=== PATIENT | female | born 1950 | race Caucasian/White ===

== ENCOUNTER → 2016-08-06 | Outpatient (CLI) | payer OTHER, MEDICARE ==
--- NOTE | 2016-08-06 09:13 | DX ---
Lumbar Spine, Four Views 7:34 a.m. Indication: Pain. Evaluate for instability. Comparison: Lumbar spine series dated February 14, 2016. Technique: Upright AP and lateral views in the neutral, flexed, and extended positions. Findings: The upright AP view reveals limb-length discrepancy resulting in mild pelvic tilt and compe nsatory curvature of the lumbar spine. The posterior fusion construct extending from L3 to L5 is well seated with no perihilar hardware fra cture or lucency. The construct consists of dual posterior rods and bilateral pedicle screws in L3, L 4, and L5. Allograft and markers reside in the L3-L4 and L4-L5 interbody spaces. The allograft appear s to be fused and bridging the vertebral bodies. 3 mm anterolisthesis of L4 on L5 is unchanged. 6 mm retrolisthesis of L2 on L3 in the neutral position has developed since the prior exam. The retro listhesis increases to 7 mm with extension and decreases to 5 mm with flexion. Moderate severe degene rative disk disease at the T12-L1, L1-L2, and L2-L3 levels has otherwise not significantly changed. N o compression fracture or bone lesion has developed. Impression: 1. Well-seated posterior fusion construct extending from L3 to L5. 2. Minimal instability at the L2-L3 level just superior to the construct. 3. Limb-length discrepancy.
--- NOTE | 2016-08-06 09:15 | DX ---
Cervical Spine - Four Views ,7:38 a.m. Indication: Pain. Evaluate for instability. Comparison: Cervical spine series dated November 28, 2015. Technique: Upright AP and lateral views in the neutral, flexed, and extended positions. Findings: The anterior and posterior fusion construct extending from C3 to C7 remains well seated. N o instability is elicited with flexion-extension maneuvers. 4 mm anterolisthesis of C7 on T1 is uncha nged since November 2015 and does not change with flexion-extension maneuvers. The bony elements from the C3-C7 level appear to be osseous fused. Minimal degenerative arthropathy at the C2-C3 and C7-T1 level s is unchanged. Prevertebral soft tissues are normal. Impression: 1. Well-seated anterior and posterior fusion construct extending from C3 to C7. 2. Grade 1 spondylolisthesis of C7 on T1. No instability.
== END ==
LOC: FIMAGING 07:31
PROVIDERS: ATTEND Physician Assistant Surgical
DX: M48.06 Spinal stenosis, lumbar region (principal); M43.22 Fusion of spine, cervical region; M43.12 Spondylolisthesis, cervical region

== ENCOUNTER → 2017-08-10 | Outpatient (CLI) | payer OTHER, MEDICARE | LOC: FIMAGING 09:39 → EDSTATUS 09:40 | PROVIDERS: ATTEND Neurological Surgery | DX: Z09 Encounter for follow-up examination after completed treatment for conditions other than malignant neoplasm (principal); M43.16 Spondylolisthesis, lumbar region; M21.70 Unequal limb length (acquired), unspecified site; Z98.1 Arthrodesis status ==

== ENCOUNTER → 2017-09-14 | Outpatient (CLI) | payer OTHER, MEDICARE | LOC: CIMAGING 09:15 | PROVIDERS: ATTEND Physician Assistant Surgical | DX: M51.34 Other intervertebral disc degeneration, thoracic region (principal); M51.36 Other intervertebral disc degeneration, lumbar region; M48.04 Spinal stenosis, thoracic region; M48.061 Spinal stenosis, lumbar region without neurogenic claudication; Z98.1 Arthrodesis status | CPT/HCPCS: 72131-PO ==

== ENCOUNTER 2017-10-17 05:28 | Inpatient (IN) | payer OTHER, MEDICARE ==
[2017-10-17] MEDS ORDERED: fentaNYL 100 MCG/2 ML INJ IT ONE (05:59)
[2017-10-17] MEDS ORDERED: morphINE PF 5 MG/10 ML INJ IT ONE (05:59)
[2017-10-17] MEDS ORDERED: ceFAZolin 2 GM/SWFI 2 GM/20 ML SYR IVP ONE (05:59)
[2017-10-17] MEDS ORDERED: TRANEXAMIC ACID 1,000 MG in NS (SYRINGE) 50 ML IV ONE (06:00)
[2017-10-17] MEDS ORDERED: LR 1,000 ML IV ONE (06:01)
[2017-10-17] MEDS ORDERED: BUPIVACAINE 0.25% 30 ML SDV ONE ×2 (06:35→07:26)
[2017-10-17] MEDS ORDERED: BACITRACIN 50,000 UNITS/10 ML SYR IRR ONE (06:36)
[2017-10-17] MEDS ORDERED: CHLORHEXIDINE GLUC HIBICLENS 118 ML BTL TP ONE (06:37)
[2017-10-17] MEDS ORDERED: THROMBIN (BOVINE) 5,000 UNIT VIAL TP ONE (06:37)
--- NOTE | 2017-10-17 06:49 | PDANEPAE ---
ANE History of Present Illness Infected lumbar hardware ANE Past Medical History - Cardiovascular History Hx Hypertension: Yes Hx Arrhythmias: Yes Hx Chest Pain: No Hx Coronary Artery / Peripheral Vascular Disease: No Hx CHF / Valvular Disease: No Hx Palpitations: No Cardiovascular History Comment: HX OF HEART MURMUR CHILD. ECHO'S HAVE BEEN NEGATIVE. PCP MONITORS BP MEDS - Pulmonary History Hx COPD: No Hx Asthma/Reactive Airway Disease: No Hx Recent Upper Respiratory Infection: No Hx Oxygen in Use at Home: No Hx Sleep Apnea: No Sleep Apnea Screening Result - Last Documented: Negative Pulmonary History Comment: BILL TRIGGERS NO DX. ENVIRONMENTAL ALLERGIES TO CATS , DUST, DIRT, ETC CAUSES ASTHMA - Neurologic History Hx Cerebrovascular Accident: No Hx Seizures: No Hx Dementia: No Neurologic History Comment: NUMBNESS IN BILATERAL ARMS AND HANDS. NUMBNESS IN BILATERAL TOES 3-5. 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 RECTOCELE REPAIR AT 48 YEARS OLD. 1998 LEFT THANG. 08/1999 BILATERAL TKA. 02/2009 AND 06/2009 BILATERAL SHOULDER SURGERIES. 2010 RTHA ANE Review of Systems Review of Systems: - Exercise capacity METS (RN): 4 METS ANE Patient History - Allergies Allergies/Adverse Reactions: meloxicam Allergy (Severe, Verified 09/06/15 08:20) Rash kiwi Allergy (Intermediate, Verified 09/06/15 08:20) Rash CATS Allergy (Uncoded 09/29/17 11:34) SEASONAL Allergy (Uncoded 09/29/17 11:35) - Home Medications Home medications: home medication list seen and reviewed Home Medications: Acetaminophen [Tylenol ES 500 mg (*)] 1,000 mg PO DAILY 09/06/15 [Last Taken 03/27] Hydrochlorothiazide [HCTZ (*)] 50 mg PO DAILY 09/06/15 [Last Taken 10/16/17] Acetaminophen [Tylenol ES 500 mg (*)] 500 mg PO HS 09/29/17 [Last Taken 10/16/17 ] Amoxicillin Trihydrate [Amoxicillin] 500 mg PO BID 09/29/17 [Last Taken 10/16/17 ] Ascorbic Acid [Vitamin C 500 mg (*)] 1,000 mg PO DAILY 09/29/17 [Last Taken 07/27] Aspirin [Aspirin 325 mg (*)] 325 mg PO DAILY 09/29/17 [Last Taken 10/08/17] Ciprofloxacin [Cipro] 500 mg PO DAILY 09/29/17 [Last Taken 10/16/17] Herbals/Supplements -Info Only 1 ea PO DAILY 09/29/17 [Last Taken 10/08/17] Levothyroxine [Synthroid 150 mcg (*)] 150 mcg PO DAILY06 09/29/17 [Last Taken ] Losartan Potassium [Cozaar 50 mg (*)] 50 mg PO DAILY 09/29/17 [Last Taken ] [place]-3 Fatty Acids [Fish Oil 1000 mg (*)] 2,000 mg PO BID 09/29/17 [Last Taken 10/08/17] Simvastatin [Zocor] 20 mg PO HS 09/29/17 [Last Taken 10/16/17] - NPO status NPO Since - Liquids (Date): 10/17/17 NPO Since - Liquids (Time): 04:00 NPO Since - Solids (Date): 10/16/17 NPO Since - Solids (Time): 14:30 - Anes Hx Anes Hx: no prior problems - Smoking Hx Smoking Status: Never smoked - Family Anes Hx Family Hx Anesthesia Complications: NONE ANE Labs/Vital Signs - Vital Signs Blood Pressure: 165/78 Heart Rate: 65 Respiratory Rate: 18 O2 Sat (%): 97 Height: 162.56 cm Weight: 88.451 kg ANE Physical Exam - Airway Neck exam: decreased ROM Mallampati Score: Class 2 Mouth exam: normal dental/mouth exam - Pulmonary Pulmonary: clear to auscultation - Cardiovascular Cardiovascular: regular rate and rhythym - ASA Status ASA Status: II ANE Anesthesia Plan Anesthesia Plan: general endotracheal anesthesia
--- NOTE | 2017-10-17 06:53 | PDHPUP ---
History & Physical Update H&P update statement: This history and physical update is based on an assessment of the patient which was completed after admission or registration (within 24 hours), but prior to the surgery/procedure. H&P update: no change in patient's condition since H&P completed
[2017-10-17] MEDS ORDERED: fentaNYL 100 MCG/2 ML INJ ONE ×2 (07:05→09:39)
[2017-10-17] MEDS ORDERED: PROPOFOL/EMULSION 500 MG/50 ML BOTTLE IV ONE (07:05)
[2017-10-17] MEDS ORDERED: REMIFENTANIL HCL 1 MG VIAL ONE (07:06)
[2017-10-17] MEDS ORDERED: PROPOFOL 200 MG/20 ML VIAL ONE (07:07)
[2017-10-17] MEDS ORDERED: LIDOCAINE 2% 5 ML SDV ONE (07:08)
[2017-10-17] MEDS ORDERED: ROCURONIUM 50 MG/5 ML VIAL ONE (07:09)
[2017-10-17] MEDS ORDERED: MIDAZOLAM 2 MG/2 ML VIAL IVP ONE (07:14)
[2017-10-17] MEDS ORDERED: MIDAZOLAM 2 MG/2 ML VIAL ONE (07:15)
[2017-10-17] MEDS ORDERED: DEXAMETHASONE 4 MG/ML VIAL ONE (08:34)
[2017-10-17] MEDS ORDERED: ONDANSETRON 4 MG/2 ML VIAL ONE ×2 (08:34→09:16)
[2017-10-17] MEDS ORDERED: NALOXONE HCL 0.4 MG/ML INJ IVP PRN (08:45)
[2017-10-17] MEDS ORDERED: HYDROmorphONE/DILAUDID 1 MG/ML INJ IVP PRN (08:45)
[2017-10-17] MEDS ORDERED: ONDANSETRON 4 MG/2 ML VIAL IVP PRN ×2 (08:45→08:51)
[2017-10-17] MEDS ORDERED: fentaNYL 100 MCG/2 ML INJ IVP PRN (08:45)
[2017-10-17] MEDS ORDERED: BISACODYL 10 MG SUPP PR PRN (08:51)
[2017-10-17] MEDS ORDERED: oxyCODONE IR 5 MG TAB PO PRN (08:51)
[2017-10-17] MEDS ORDERED: MAGNESIUM HYDROXIDE 30 ML UDCUP PO PRN (08:51)
[2017-10-17] MEDS ORDERED: LACTULOSE 20 GM/30 ML UDCUP PO PRN (08:51)
[2017-10-17] MEDS ORDERED: traMADol 50 MG TAB PO PRN ×2 (08:51→17:37)
[2017-10-17] MEDS ORDERED: diphenhydrAMINE 25 MG CAP PO PRN (08:51)
[2017-10-17] MEDS ORDERED: ONDANSETRON DISINTEGRATING 4 MG TAB PO PRN (08:51)
--- NOTE | 2017-10-17 08:55 | GOP ---
[f rep st] OPERATIVE REPORT DATE OF OPERATION: 10/17/2017 SURGEON: Ismael Fink MD NEUROSURGEON: Ismael Fink MD. DRUPAL WEB DEVELOPER: CARL Hernandez. ANESTHESIA: General endotracheal. PREOPERATIVE DIAGNOSIS: History of infected hardware. POSTOPERATIVE DIAGNOSIS: History of infected hardware. PROCEDURE PERFORMED: 1. Removal of posterior segmental (pedicle screw) fixation and exploration of spinal fusion at L3-L5 . 2. Use of intraoperative fluoroscopy. FINDINGS: ESTIMATED BLOOD LOSS: 25 cc. INDICATIONS: The patient is a 67-year-old woman who underwent an extensive lumbar multilevel surgica l decompression and stabilization procedure with hardware, who had an infection postoperatively and r equires lifetime antibiotics and wants to get off these, and per the recommendation of the infectious disease doctor she needs the hardware removed and presents now for removal. DESCRIPTION OF PROCEDURE: After informed consent was obtained, the patient was taken to the operatin g room and placed in the prone position on the Walter table. The lumbosacral area was prepped and d raped in a sterile fashion. After fluoroscopic localization of the correct levels, the subcutaneous and intramuscular tissues were infiltrated with local anesthesia. A midline linear incision was then created from approximately L3-L5. This was carried down to the fascial layer, which was incised usi ng monopolar electrocautery and carried in a subperiosteal plane along the spinous prostheses at the superior and inferior aspect of the construct. This was carried out laterally to the hardware, which was carefully dissected out and removed in a standard fashion at L3, L4 and L5. The locking caps we re removed, then the rods, then the pedicle screws, and the holes were filled with Gelfoam. The woun d was copiously irrigated with antibiotic irrigation. Meticulous hemostasis was achieved. A drain w as placed and the wound was closed in a layered fashion using interrupted Vicryl sutures followed by Steri-Strips on the skin. COMPLICATIONS: None. DISPOSITION: The patient is currently in the process of being repositioned for extubation. /[id number]/MODL
[2017-10-17] MEDS ORDERED: Herbals/Supplements -Info Only PO SCH (09:00)
[2017-10-17] MEDS ORDERED: NS W/ 20 KCl/L 1,000 ML IV SCH (09:00)
--- NOTE | 2017-10-17 09:05 | POSTOPPROG ---
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
--- NOTE | 2017-10-17 09:09 | SOAPPROG ---
SOAP Progress Note Assessment/Plan: POST OP Check: Assessment: doing well, pain controlled oriented Plan: CPM in PACU and transfer to floor per protocol ANNETTE to bulb suction 10/17/17 09:07 Subjective: awake, alert, comfortable Objective: Vital Signs Temp Pulse Resp BP Pulse Ox 37.2 C 65 18 165/78 H 97 10/17/17 06:14 10/17/17 07:29 10/17/17 07:29 10/17/17 07:29 10/17/17 07:29 HR: 87 O2: 100% Face mask BP: 1241/69 Neuro: Oriented x 4 , alert, comfortable DIAL to command, sens +LT throughout ICD10 Worksheet Patient Problems: Problems Problem Status Onset Fusion of lumbar spine Acute Obesity Acute Stenosis, cervical spine Acute
[2017-10-17] MEDS: ACETAMINOPHEN 500 MG TAB PO SCH (13:57)
[2017-10-17] MEDS: POLYETHYLENE GLYCOL 3350 17 GM PKT PO SCH ×3 (13:58→22:00)
[2017-10-17] MEDS: SENNOSIDES/DOCUSATE SODIUM TAB PO SCH ×2 (13:58→22:00)
[2017-10-17] MEDS: ASCORBIC ACID 500 MG TAB PO SCH (13:58)
[2017-10-17] MEDS: HYDROCHLOROTHIAZIDE 25 MG TAB PO SCH (13:58)
[2017-10-17] MEDS: LOSARTAN POTASSIUM 50 MG TAB PO SCH (13:58)
[2017-10-17] MEDS: FAMOTIDINE 20 MG TAB PO SCH ×2 (13:58→21:15)
[2017-10-17] MEDS: ceFAZolin 2 GM/SWFI 2 GM/20 ML SYR IVP SCH (15:09)
[2017-10-17] MEDS: GABAPENTIN 300 MG CAP PO SCH ×2 (15:09→21:08)
--- NOTE | 2017-10-17 15:42 | PDMN ---
Medical Necessity Medical necessity: IP surgery per [facility] cpt 66548, and [id number] removal of hardware and exploration of spinal fusion
[2017-10-17] MEDS: METHOCARBAMOL 750 MG TAB PO PRN ×2 (16:48→21:15)
[2017-10-17] MEDS ORDERED: ATORVASTATIN CALCIUM 10 MG TAB PO SCH (21:00)
[2017-10-17] MEDS: ACETAMINOPHEN 325 MG TAB PO PRN (21:14)
[2017-10-18] MEDS: ceFAZolin 2 GM/SWFI 2 GM/20 ML SYR IVP SCH (00:30)
[2017-10-18 05:24] LABS: PLATELET COUNT 175 10^3/uL (150-400)
[2017-10-18] MEDS ORDERED: LEVOTHYROXINE 150 MCG TAB PO SCH (06:00)
[2017-10-18] MEDS: GABAPENTIN 300 MG CAP PO SCH ×2 (06:31→15:17)
[2017-10-18] MEDS: METHOCARBAMOL 750 MG TAB PO PRN ×2 (06:35→13:11)
[2017-10-18] MEDS: ACETAMINOPHEN 325 MG TAB PO PRN (06:35)
[2017-10-18] MEDS ORDERED: AMOXICILLIN TRIHYDRATE 500 MG PO SCH (08:00)
[2017-10-18] MEDS ORDERED: CIPROFLOXACIN 500 MG PO SCH (08:00)
--- NOTE | 2017-10-18 08:33 | SOAPPROG ---
SOAP Progress Note Assessment/Plan: Assessment: doing well, pain controlled with only 12.5 of Tramadol and Tylenol denies new neuro changes Plan: Change dressing this AM. Continue ANNETTE drain PT/OT DC home today Subjective: awake, alert, comfortable. no overnight issues Objective: Vital Signs Temp Pulse Resp BP Pulse Ox 36.7 C 63 16 130/48 H 94 10/18/17 07:29 10/18/17 07:29 10/18/17 07:29 10/18/17 07:29 10/18/17 07:29 Laboratory Results 10/18/17 04:58 10/18/17 04:58 10/17/17 10/18/17 10/19/17 05:59 05:59 05:59 Intake Total 1550 Output Total 990 Balance 560 Neuro: Oriented x 4 DIAL, sens+LT follows commands Dressing: Saturated ANNETTE: 115ml ICD10 Worksheet Patient Problems: Problems Problem Status Onset Fusion of lumbar spine Acute Obesity Acute Stenosis, cervical spine Acute
[2017-10-18] MEDS: ACETAMINOPHEN 500 MG TAB PO SCH (08:39)
[2017-10-18] MEDS: ASCORBIC ACID 500 MG TAB PO SCH (08:40)
[2017-10-18] MEDS: FAMOTIDINE 20 MG TAB PO SCH (08:40)
[2017-10-18] MEDS: POLYETHYLENE GLYCOL 3350 17 GM PKT PO SCH (08:40)
[2017-10-18] MEDS: SENNOSIDES/DOCUSATE SODIUM TAB PO SCH (08:40)
[2017-10-18] MEDS: HYDROCHLOROTHIAZIDE 25 MG TAB PO SCH (08:42)
[2017-10-18] MEDS: LOSARTAN POTASSIUM 50 MG TAB PO SCH (08:42)
[2017-10-18] MEDS ORDERED: ENOXAPARIN 40 MG/0.4 ML SYR SC SCH (09:00)
[2017-10-18] MEDS ORDERED: CIPROFLOXACIN 500 MG TAB PO SCH (09:00)
[2017-10-18 11:56] VITALS: BP 116/43
--- NOTE | 2017-10-18 15:47 | ASMTCMCOM ---
CM Note CM Note Notes: Pt had hardware removal, is independent and did not require full OT/PT evals. Pt medically stable for d/c with son assist at home. No CM d/c needs identified. Date Signed: 10/18/2017 03:46 PM Electronically Signed By:MERVAT Martínez
== END 2017-10-18 15:37 | disposition home or self-care (01) | DRG 517 ==
LOC: F3N 05:28 → OBSVTOIN 15:36
PROVIDERS: ADMIT Neurological Surgery; ATTEND Neurological Surgery
PROC: 0SP00AZ Removal of Interbody Fusion Device from Lumbar Vertebral Joint, Open Approach (ICD-10-PCS; principal; 2017-10-17 07:15)
DX: T84.7XXA Infection and inflammatory reaction due to other internal orthopedic prosthetic devices, implants and grafts, initial encounter (principal); I10 Essential (primary) hypertension; G47.33 Obstructive sleep apnea (adult) (pediatric); E03.9 Hypothyroidism, unspecified; Z96.653 Presence of artificial knee joint, bilateral; Z96.643 Presence of artificial hip joint, bilateral; Z85.820 Personal history of malignant melanoma of skin
CPT/HCPCS: J0171; J0690; J1100; J1650; J2250; J2405; J2704; J3010